=== PATIENT | male | born 1980 | race Caucasian/White ===

== ENCOUNTER 2017-02-03 14:30 | Outpatient (CLI) | payer OTHER | END 2017-02-03 15:30 | disposition home or self-care (01) | LOC: SLEEP 14:30 | PROVIDERS: ATTEND Otolaryngology Otolaryngology/Facial Plastic Surgery | DX: R06.83 Snoring (principal) ==

== ENCOUNTER → 2017-02-17 | Outpatient (CLI) | payer OTHER ==
--- NOTE | 2017-02-17 10:32 | Diagnostic Imaging Report ---
PROCEDURE: CT sinuses without contrast TECHNIQUE: Multiple contiguous axial images were obtained through the sinuses without the use of intravenous contrast. Coronal and sagittal reformations were then performed. INDICATION: Chronic sinusitis. FINDINGS: There is a 1.9 cm mucous retention cyst seen in the posterior inferior aspect of the right maxillary sinus. There is minimal mucosal thickening also seen in the inferior aspect of the maxillary sinuses. Ostiomeatal complexes are patent. There is minimal mucosal thickening in the ethmoidal air cells mostly anterior, and mid on the left side. The sphenoidal sinuses are patent. Mild mucosal thickening in the frontal sinuses is seen, but are visualized on the coronal images. The mastoid air cells and middle ear cavities are clear. The nasal cavity demonstrates mild septal deviation to the left and mild mucosal thickening along the mid and inferior turbinates on the left side. Minimal narrowing of the nasal passages only on the left side. IMPRESSION: Mild sinus disease. Dictated by: Dictated on workstation # [id number]
== END ==
LOC: RAD 09:25
PROVIDERS: ATTEND Otolaryngology Otolaryngology/Facial Plastic Surgery
DX: J32.9 Chronic sinusitis, unspecified (principal)
CPT/HCPCS: 70486